=== PATIENT | female | born 1955 ===

== ENCOUNTER 2024-02-27 05:11 | Day surgery (SDC) | payer OTHER ==
[2024-02-17 09:18] LABS: HEMATOCRIT 40.1 % (36.0-45.00); HEMOGLOBIN 13.7 g/dL (12.0-15.00); MEAN CELL VOLUME 90.1 fL (80.00-100.00); MEAN CORPUSCULAR HEMOGLOBIN 30.8 pg (27.00-32.0); MEAN CORPUSCULAR HGB CONC 34.1 g/dl (32.0-36.0); PLATELET COUNT 320 K/uL (150-450); RED BLOOD COUNT 4.45 M/uL (4.00-6.00); RED CELL DISTRIBUTION WIDTH 13.5 % (11.5-14.5)
[2024-02-17 09:34] LABS: URINE APPEARANCE Clear; URINE BILIRRUBIN Negative (NEGATIVE); URINE BLOOD Negative; URINE COLOR Yellow; URINE GLUCOSE Negative (NEGATIVE); URINE KETONE Negative (NEGATIVE); URINE LEUKOCYTE Negative; URINE NITRATE Negative; URINE PROTEIN Negative (NEGATIVE); URINE UROBILINOGEN 0.2 E.U./dl
[2024-02-17 09:35] LABS: PARTIAL THROMBOPLASTIN TIME 30.8 SECONDS (22.0-34.0); PROTHROMBIN TIME 10.9 SECONDS (9.0-11.5)
[2024-02-17 09:39] LABS: URINE BACTERIA 18.3 uL (0.0-1933); URINE EPITHELIAL CELLS 2.5 uL (0.0-38.8); URINE WBC 6.4 uL (0.0-23.2)
[2024-02-17 09:41] LABS: URINE CAST 0.14 uL (0.0-1.40)
[2024-02-17 10:09] LABS: ALBUMIN 3.8 gm/dL (3.4-5.0); CALCIUM 9.7 mg/dL (8.5-10.1); CREATININE SERUM 0.44 mg/dL (0.55-1.02); GFR 141.78; PHOSPHOROUS 3.7 mg/dL (2.5-4.9); POTASSIUM 4.66 mEq/L (3.5-5.1)
[2024-02-17 12:09] VITALS: BP 138/84
[~2024-02-27] VITALS: Ht 152.4 cm; Wt 65.8 kg
[2024-02-27] MEDS ORDERED: CEFAZOLIN SODIUM 1,000 MG VIAL ONE (06:13)
[2024-02-27] MEDS ORDERED: ACID REDUCER20 M1 PO (08:12)
[2024-02-27] MEDS ORDERED: OXYMETAZOLINE HCL 15 ML NASAL DROPS NASAL ONE (08:30)
[2024-02-27 09:30] VITALS: BP 96/63; O2SAT 100
== END 2024-02-27 09:45 | disposition home or self-care (01) ==
LOC: CIR.AMB 05:11
PROVIDERS: ATTEND Otolaryngology Otology & Neurotology
DX: J38.1 Polyp of vocal cord and larynx (principal); R49.0 Dysphonia